=== PATIENT | female | born 1955 | race African-American/Black ===

== ENCOUNTER 2018-10-13 11:08 | Outpatient (CLI) | payer MEDICARE ==
--- NOTE | 2018-10-13 13:45 | CT ---
CT BRAIN WITHOUT CONTRAST: Date: 10/13/18 HISTORY: Stenosis and occlusion, altered mental status stroke. FINDINGS: Comparison made with exam of 12/22/15. 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 No evidence of acute infarct, h emorrhage, midline shift, or abnormal extra-axial fluid collections are seen. Changes of chronic smal l vessel ischemic disease are again noted. The ventricular size is appropriate and the basilar cister ns are patent. The bony calvarium is intact. The visualized paranasal sinuses and mastoid air cells a re well aerated. IMPRESSION: No CT evidence of acute intracranial process. POS: [facility]
== END 2018-10-13 11:09 | disposition home or self-care (01) ==
LOC: BICCT 11:08
PROVIDERS: ATTEND Psychiatry & Neurology Neurology
DX: I66.02 Occlusion and stenosis of left middle cerebral artery (principal)
CPT/HCPCS: 70450